=== PATIENT | female | born 2005 | race Two or more races ===

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

== ENCOUNTER 2024-06-30 03:42 | Emergency (ER) | payer OTHER ==
[~2024-06-30] VITALS: Ht 162.6 cm; Wt 156.0 kg
[~2024-06-30 03:42] MED LIST: ACET-66 PO; ACYC-138 PO; FERR325T27 PO; ONDA-104 PO
[2024-06-30 03:45] VITALS: TEMP 98.1
[2024-06-30 05:27] LABS: EOSINOPHILS % (AUTO) 2.3 % (1.0-6.0); HEMATOCRIT 39.3 % (36-46); HEMOGLOBIN 13.2 g/dL (12.0-16.0); LYMPHOCYTES # (AUTO) 1.5 K/uL (1.0-4.8); LYMPHOCYTES % (AUTO) 40.2 % (22.0-44.0); MEAN CORPUSCULAR HEMOGLOBIN 28.6 pg (26.0-34.0); MEAN CORPUSCULAR HGB CONC 33.7 G/dL (31.0-37.0); MEAN CORPUSCULAR VOLUME 85 fL (80-100); MONOCYTES # (AUTO) 0.3 K/uL (0.1-1.0); MONOCYTES % (AUTO) 7.7 % (2.0-9.0); NEUTROPHILS # (AUTO) 1.8 K/uL (1.8-7.7); NEUTROPHILS % (AUTO) 48.8 % (40.0-70.0); PLATELET COUNT (AUTO) 239 K/uL (150-450); RED BLOOD CELL COUNT(AUTO) 4.63 MIL/uL (4.00-5.20); RED CELL DISTRIBUTION WIDTH 13.1 % (11.5-14.5); WHITE BLOOD COUNT (AUTO) 3.7 K/uL (4.5-11.0)
[2024-06-30 05:57] VITALS: BP 117/80; PULSE 71; RESP 16; O2SAT 99
[2024-06-30 06:12] LABS: ANION GAP 9 mmol/L (8-16); CALCIUM, TOTAL 8.8 mg/dL (8.8-10.5); CARBON DIOXIDE 27 mmol/L (22-29); CHLORIDE 102 mmol/L (98-107); CREATININE 0.75 mg/dL (0.60-1.30); GLOMERULAR FILTR. RATE CALC > 60 mL/min (>60); GLUCOSE,RANDOM 116 mg/dL (70-110); POTASSIUM 4.1 mmol/L (3.5-5.1); SODIUM SERUM 138 mmol/L (136-145); UREA NITROGEN, BLOOD 11 mg/dL (7-18)
[2024-06-30 06:21] LABS: TROPONIN I-HIGH SENSITIVITY Less Than 4 ng/L (<51)
[2024-06-30 06:32] LABS: ALCOHOL, BLOOD (SERUM) < 3 mg/dL (0-10)
== END 2024-06-30 07:55 | disposition home or self-care (01) ==
LOC: EMS 03:42
DX: R07.89 Other chest pain (principal); E78.00 Pure hypercholesterolemia, unspecified; Z79.624 Long term (current) use of inhibitors of nucleotide synthesis
CPT/HCPCS: 99285; 71045; 80048; 82962; 84484; 85025; 93005; G0480; 36415-L1; 36415-TC

== ENCOUNTER 2025-02-02 14:38 | Emergency (ER) | payer OTHER ==
[~2025-02-02] VITALS: Ht 162.6 cm; Wt 70.9 kg
[2025-02-02 14:43] VITALS: BP 113/79; PULSE 94; RESP 18; TEMP 97.9; O2SAT 99
[2025-02-02] MEDS: DiphenhydrAMINE HCL 50 MG/ML VIAL IM ONE (15:44)
[2025-02-02] MEDS: FAMOTIDINE 20 MG TABLET PO ONE (15:44)
[2025-02-02] MEDS: PredniSONE 20 MG TABLET PO ONE (15:45)
[2025-02-02] MEDS ORDERED: DIPH50CA37 PO (16:17)
[2025-02-02] MEDS ORDERED: FAMO20 PO (16:17)
[2025-02-05] MEDS ORDERED: PRED-554 PO (00:25)
[2025-02-05] MEDS ORDERED: CLIN-142 PO (00:25)
== END 2025-02-02 16:44 | disposition home or self-care (01) ==
LOC: EMS 14:39
DX: T78.40XA Allergy, unspecified, initial encounter (principal); E78.00 Pure hypercholesterolemia, unspecified; X58.XXXA Exposure to other specified factors, initial encounter
CPT/HCPCS: 99283; 82962; 96372; J1200; J7512